=== PATIENT | female | born 1985 | race Caucasian/White ===

== ENCOUNTER 2019-03-06 05:25 | Inpatient (IN) | payer OTHER ==
[~2019-03-06] VITALS: Ht 165.1 cm; Wt 88.4 kg
[2019-03-06] MEDS ORDERED: LACTATED RINGER'S 1,000 ML IV PRN (07:03)
[2019-03-06] MEDS ORDERED: VALA500T PO (07:08)
--- NOTE | 2019-03-06 07:11 | TRIAGE ---
OB Triage Datetime Report Generated by CPN: 03/06/2019 07:10 Datetime: 03/06/2019 06:40 Stage of : OB Triage Datetime: 03/06/2019 06:21 Stage of : OB Triage Labor Evaluation Frequency: 2-5 Monitor Mode: External Duration (sec)2399: 30-60 Quality: Mild Pattern: Normal: <= 5 Contractions in 10 Minutes Resting Tone [place]: Relaxed Heart Rate FHR Baseline Rate: 130 Monitor Mode: External US FHR Baseline Changes: No Baseline Change Variability: Moderate 6-25 bpm Accelerations: 15X15 Decelerations: Variable Category: Category II Vaginal Exam Dilatation (cms): 3.0 Effacement (%): 90 Station: -2 Exam By: Seda Bustos Membrane Status: Ruptured Membranes Rupture Method: Spontaneous Amniotic Fluid Color: Clear Amniotic Fluid Amount: Copious Amniotic Fluid Odor: Normal Vaginal Bleeding: Scant Pool: Positive Cervix, Consistency: Soft Cervix, Position: Posterior Presentation 'A': Cephalic Datetime: 03/06/2019 06:20 Membrane Status: Ruptured Datetime: 03/06/2019 06:06 Time of Arrival: 03/06/2019 05:18 EGA: 39.2 Arrived By: Wheelchair Arrived From: Home Chief Complaint: w/ IVF c/o occas uc, srom @ 0430, and 3cm at MD yesterday Movement: Present Contractions: Occasional Rupture of Membranes: Ruptured Vaginal Bleeding: None Vaginal Discharge: Present Recent Sexual Intercouse: Denies Abdominal Trauma: Not Applicable Patient Complaints: Cramping Time Provider Notified: 03/06/2019 06:40 Provider Notified: Dr Ramos Initial Plan: EFM,SVE Datetime: 03/06/2019 05:48 Stage of : OB Triage Maternal Assessment Level of Consciousness: Fully Conscious DTR's/Clonus: DTRs 2+; No Clonus Headache: Denies Blurred Vision: No Nausea/Vomiting: Denies RUQ Epigastric Pain: Denies Facial Edema: None Monitor Mode: External Heart Rate FHR Baseline Rate: 130 Monitor Mode: External US Pain Assessment Pain Presence: Intermittent Pain Type: Contraction Pain Location: Abdomen
[2019-03-06] MEDS ORDERED: METHYLERGONOVINE 0.2 MG INJ IM PRN ×2 (07:30→22:30)
[2019-03-06] MEDS ORDERED: AMPICILLIN 2 GM/NS (PMX) 100 ML IV ONE (07:30)
[2019-03-06] MEDS ORDERED: LIDOCAINE 1% (MPF) 30 ML INJ INJ PRN (07:30)
[2019-03-06] MEDS ORDERED: BUTORPHANOL 2 MG INJ IV PRN ×2 (07:30)
[2019-03-06] MEDS ORDERED: OXYTOCIN 30 UNITS/LR 500 ML IV PRN ×2 (07:30→22:30)
[2019-03-06] MEDS ORDERED: IBUPROFEN 600 MG TAB PO PRN (07:30)
[2019-03-06] MEDS ORDERED: MISOPROSTOL 200 MCG TAB PR PRN ×2 (07:30→22:30)
[2019-03-06] MEDS ORDERED: CARBOPROST 250 MCG INJ IM PRN ×2 (07:30→22:30)
[2019-03-06] MEDS ORDERED: OXYTOCIN 30 UNITS/LR 500 ML IV SCH ×4 (07:30→22:30)
[2019-03-06 08:57] VITALS: Ht 165.1 cm; Wt 88.4 kg
[2019-03-06] MEDS: LACTATED RINGER'S 1,000 ML IV SCH ×2 (09:33→18:24)
[2019-03-06] MEDS: AMPICILLIN 1 GM/NS (PMX) 50 ML IV SCH ×2 (13:56→18:23)
[2019-03-06] MEDS ORDERED: FENTAnyl 2MCG/ML-ROPIV 0.2% 100 ML ONE (17:43)
--- NOTE | 2019-03-06 18:06 | PREAC ---
Date/Time of Note Date/Time of Note DATE: 03/06/19 TIME: 18:04 Anesthesia Eval and Record Evaluation Time Pre-Procedure Interview DATE: 03/06/19 TIME: 16:25 Age 33 Sex female NPO: 8 hrs Preoperative diagnosis iup @ 39 wks., , labor Planned procedure joya Past Medical History Past Medical History: Includes : : (1), Para: (0), Gestational age: (39 wks.) Surgery & Anesthesia Issues No known issue Meds Anticoagulation: No Beta Baltazar within 24 hr: No Reason Beta Baltazar not given: Pt. not on B-Baltazar Reported Medications valAcyclovir Hcl* (valACYclovir Hcl*) 500 Mg Tablet, 500 MG PO BID, TAB 03/06/19 Current Medications Lactated Ringer's 1,000 ml @ 125 mls/hr Q8H IV Last administered on 03/06/19at 09:33; Admin Dose 125 MLS/HR; Start 03/06/19 at 07:03 Ampicillin 50 ml @ 100 mls/hr Q4H IV Last administered on 03/06/19at 13:56; Admin Dose 100 MLS/HR; Start 03/06/19 at 11:30 Butorphanol Tartrate (Stadol) 1 mg Q2H PRN IV .PAIN SCALE 1-5; Start 03/06/19 at 07:30 Butorphanol Tartrate (Stadol) 2 mg Q2H PRN IV .PAIN SCALE 6-10; Start 03/06/19 at 07:30 Lidocaine (Xylocaine 1% (Mpf)) 30 ml ONCE PRN INJ .EPISIOTOMY; Start 03/06/19 at 07:30 Oxytocin/Lactated Ringer's 500 ml @ 500 mls/hr ONCE POST IV ; Start 03/06/19 at 07:30 Oxytocin/Lactated Ringer's 500 ml @ 125 mls/hr POST IV ; Start 03/06/19 at 07:30 Ibuprofen (Motrin) 600 mg ONCE PRN PO .PAIN 1-5; Start 03/06/19 at 07:30 Lactated Ringer's 1,000 ml @ 2,000 mls/hr Q30M PRN IV .ANESTHESIA; Start 03/06/19 at 07:03 Oxytocin/Lactated Ringer's 500 ml @ 0 mls/hr ONCE PRN IV .VAGINAL BLEEDING; Start 03/06/19 at 07:30 Methylergonovine Maleate (Methergine) 0.2 mg ONCE PRN IM .VAGINAL BLEEDING; Start 03/06/19 at 07:30 Carboprost Tromethamine (Hemabate) 250 mcg ONCE PRN IM .VAGINAL BLEEDING; Start 03/06/19 at 07:30 Misoprostol (Cytotec) 1,000 mcg ONCE PRN SC .VAGINAL BLEEDING; Start 03/06/19 at 07:30 Oxytocin/Lactated Ringer's 500 ml @ 0 mls/hr FOR AUGMENTATION IV ; Start 03/06/19 at 07:30 Meds reviewed: Yes Allergies Coded Allergies: No Known Allergy (Unverified , 03/06/19) Allergies Reviewed: Yes Labs/Studies Labs Reviewed: Reviewed by anesthesiologist Result Diagram: 03/06/19 0820 Laboratory Tests 03/06/19 08:20 Blood Bank Test 03/06/19 08:20 Antibody Screen NEGATIVE Blood Type O POSITIVE Rh Immune Globulin Candidate NO test: Positive Studies: ECG (n/a), CXR (n/a) Pre-procedure Exam Airway: Adequate mouth opening, Adequate thyromental dist Mallampati: Mallampati II Teeth: Normal Lung: Normal Heart: Normal ASA Physical Status ASA physical status: 2 Emergency: E Planned Anesthetic Neuraxial: Epidural Planned Pain Management Epidural, Local by surgeon Pre-operative Attestations Prior to commencing anesthesia and surgery, the patient was re-evaluated, there was verification of: *The patient's identity *The results of appropriate recent lab work and preoperative vital signs *The above evaluation not changing prior to induction *Anesthetic plan, risk benefits, alternative and complications discussed with patient/family; questions answered; patient/family understands, accepts and wishes to proceed. Matchbook Assembler used JOHN JESSICA MD Mar 06, 2019 18:06
[2019-03-06] MEDS ORDERED: NALOXONE (0.4 MG/ML) INJ IV PRN (18:30)
[2019-03-06] MEDS ORDERED: FENTAnyl 2MCG/ML-ROPIV 0.2% 100 ML BAG EPI SCH (18:30)
--- NOTE | 2019-03-06 19:25 | HP ---
Date/Time of Note Date/Time of Note DATE: 03/06/19 TIME: 19:19 OB - History Hx of Present Free Text/Dictation 33 y.o. A1 with an IVF at 39 weeks who presented this AM with ruptured membranes and in early labor. Her initial exam was 90%/3/-3. She was grossly ruptured with a large amount of amniotic fluid coming out during the initial exam. Estimated Due Date: Mar 13, 2019 : 2 Para: 0 Spontaneous : 1 Care: Good Care Ultrasounds: Normal mid trimester US Obstetrical Complications: None Medical Complications: None Other Concerns: PMHx: PCOS. H/o heart palpitations. PSHx: IVF cycle. NKDA. Past Family/Social History * Past Medical, Surgical, Family and Obstetric Histories reviewed from chart. Blood Type: O+ Rubella: immune RPR/VDRL: Negative GBS Status: Positive HBsAG: Negative OB Admission Exam Physical Exam HEENT: WNL Heart: Rhythm Normal Lungs: Clear Abdomen: WNL Extremities: Normal Reflexes: Normal Cervical Dilatation: 3cm Effacement: Other (90%) Station: -3 Membranes: Ruptured Amniotic Fluid: Clear Heart Rate: 140's Accelerations: Accelerations Present Decelerations: No Decelerations Varibility: Moderate Contractions on Admission: 6-10 Minutes Apart Intensity: Mild Last 72 hours Lab Results CBC & BMP 03/06/19 08:20 OB Assessment/Plan Reason for admission: rupture of membranes Other Assessment: IUP at 39 weeks. Beta strep positive. Plan: Expectant Management Other plan: Augmentation with pitocin as needed. ANTON MAZARIEGOS MD Mar 06, 2019 19:25
[2019-03-06] MEDS ORDERED: CEFAZOLIN 2 GM/50 ML (PMX) 50 ML IVPB SCH (22:30)
[2019-03-06] MEDS ORDERED: ONDANSETRON 4 MG INJ ONE (23:27)
[2019-03-06] MEDS ORDERED: METOCLOPRAMIDE 10 MG INJ ONE (23:27)
[2019-03-06] MEDS ORDERED: MIDAZOLAM 1 MG/ML 2 ML INJ ONE ×5 (23:37→23:51)
[2019-03-06] MEDS ORDERED: LACTATED RINGER'S 1,000 ML IV ONE (23:46)
--- NOTE | 2019-03-06 23:46 | PREAC ---
Date/Time of Note Date/Time of Note DATE: 03/06/19 TIME: 23:30 Anesthesia Eval and Record Evaluation Time Pre-Procedure Interview DATE: 03/06/19 TIME: 23:00 Age 33 Sex female NPO: 8 hrs Preoperative diagnosis iup @ 39 wks., , labor, failed induction, non reassuring status Planned procedure primary c/s Past Medical History Past Medical History: Includes : : (1), Para: (0), Gestational age: (39 wks.), Other (failed induction, non reassuring status) Surgery & Anesthesia Issues No known issue Meds Anticoagulation: No Beta Baltazar within 24 hr: No Reason Beta Baltazar not given: Pt. not on B-Baltazar Reported Medications valAcyclovir Hcl* (valACYclovir Hcl*) 500 Mg Tablet, 500 MG PO BID, TAB 03/06/19 Current Medications Lactated Ringer's 1,000 ml @ 125 mls/hr Q8H IV Last administered on 03/06/19at 18:24; Admin Dose 125 MLS/HR; Start 03/06/19 at 07:03 Ampicillin 50 ml @ 100 mls/hr Q4H IV Last administered on 03/06/19at 18:23; Admin Dose 100 MLS/HR; Start 03/06/19 at 11:30 Butorphanol Tartrate (Stadol) 1 mg Q2H PRN IV .PAIN SCALE 1-5; Start 03/06/19 at 07:30 Butorphanol Tartrate (Stadol) 2 mg Q2H PRN IV .PAIN SCALE 6-10; Start 03/06/19 at 07:30 Lidocaine (Xylocaine 1% (Mpf)) 30 ml ONCE PRN INJ .EPISIOTOMY; Start 03/06/19 at 07:30 Oxytocin/Lactated Ringer's 500 ml @ 500 mls/hr ONCE POST IV ; Start 03/06/19 at 07:30 Oxytocin/Lactated Ringer's 500 ml @ 125 mls/hr POST IV ; Start 03/06/19 at 07:30 Ibuprofen (Motrin) 600 mg ONCE PRN PO .PAIN 1-5; Start 03/06/19 at 07:30 Lactated Ringer's 1,000 ml @ 2,000 mls/hr Q30M PRN IV .ANESTHESIA Last administered on 03/06/19at 22:49; Admin Dose 2,000 MLS/HR; Start 03/06/19 at 07:03 Oxytocin/Lactated Ringer's 500 ml @ 0 mls/hr ONCE PRN IV .VAGINAL BLEEDING; Start 03/06/19 at 07:30 Methylergonovine Maleate (Methergine) 0.2 mg ONCE PRN IM .VAGINAL BLEEDING; Start 03/06/19 at 07:30 Carboprost Tromethamine (Hemabate) 250 mcg ONCE PRN IM .VAGINAL BLEEDING; Start 03/06/19 at 07:30 Misoprostol (Cytotec) 1,000 mcg ONCE PRN IN .VAGINAL BLEEDING; Start 03/06/19 at 07:30 Oxytocin/Lactated Ringer's 500 ml @ 0 mls/hr FOR AUGMENTATION IV Last administered on 03/06/19at 18:30; Admin Dose 8 MLS/HR; Start 03/06/19 at 07:30 Naloxone HCl (Narcan) 0.1 mg Q2M PRN IV .RESP RATE; Start 03/06/19 at 18:30; Stop 03/07/19 at 18:29 Fentanyl/ Ropivacaine 100 ml EPIDURAL INFUSION EPI ; Start 03/06/19 at 18:30 Cefazolin Sodium/ Dextrose 50 ml @ 100 mls/hr ONCE IVPB ; Start 03/06/19 at 22:30 Oxytocin/Lactated Ringer's 500 ml @ 125 mls/hr POST IV ; Start 03/06/19 at 22:30 Meds reviewed: Yes Allergies Coded Allergies: No Known Allergy (Unverified , 03/06/19) Allergies Reviewed: Yes Labs/Studies Labs Reviewed: Reviewed by anesthesiologist Result Diagram: 03/06/19 0820 Laboratory Tests 03/06/19 08:20 Blood Bank Test 03/06/19 08:20 Antibody Screen NEGATIVE Blood Type O POSITIVE Rh Immune Globulin Candidate NO test: Positive Studies: ECG (n/a), CXR (n/a) Pre-procedure Exam Airway: Adequate mouth opening, Adequate thyromental dist Mallampati: Mallampati II Teeth: Normal Lung: Normal Heart: Normal ASA Physical Status ASA physical status: 2 Emergency: E Planned Anesthetic General/MAC: MAC Neuraxial: Epidural (top up) Planned Pain Management Epidural (epidural narcotics), Local by surgeon Pre-operative Attestations Prior to commencing anesthesia and surgery, the patient was re-evaluated, there was verification of: *The patient's identity *The results of appropriate recent lab work and preoperative vital signs *The above evaluation not changing prior to induction *Anesthetic plan, risk benefits, alternative and complications discussed with patient/family; questions answered; patient/family understands, accepts and wishes to proceed. Mechanic Chief used JOHN JESSICA MD Mar 06, 2019 23:40
[2019-03-06] MEDS ORDERED: OXYTOCIN 10 UNIT INJ ONE (23:50)
[2019-03-06] MEDS ORDERED: FENTAnyl 50 MCG/ML VIAL ONE (23:51)
[2019-03-06] MEDS ORDERED: morphine SULFATE/PF (10 MG/10 ML) INJ ONE (23:52)
[2019-03-07] MEDS ORDERED: ZOLPIDEM 5 MG TAB PO PRN
[2019-03-07] MEDS ORDERED: LORAZEPAM 2 MG INJ IV PRN
[2019-03-07] MEDS ORDERED: KETOROLAC 30 MG INJ IV PRN
[2019-03-07] MEDS ORDERED: ONDANSETRON 4 MG INJ IV PRN
[2019-03-07] MEDS ORDERED: MEPERIDINE 25 MG INJ IV PRN
[2019-03-07] MEDS ORDERED: MIDAZOLAM 1 MG/ML 2 ML INJ IV PRN
[2019-03-07] MEDS ORDERED: DIPHENHYDRAMINE 50 MG INJ IV PRN ×2
[2019-03-07] MEDS ORDERED: NALBUPHINE HCL (10 MG/1 ML) INJ IV PRN
[2019-03-07] MEDS ORDERED: HYDROmorphONE 0.5 MG/0.5 ML SYG IV PRN ×2
[2019-03-07] MEDS ORDERED: EPHEDrine 25 MG/5 ML SYG IV PRN
[2019-03-07] MEDS ORDERED: NALOXONE (0.4 MG/ML) INJ IV PRN
[2019-03-07] MEDS ORDERED: OXYTOCIN 30 UNITS/LR 500 ML IV SCH (00:31)
[2019-03-07] MEDS ORDERED: KETOROLAC 30 MG INJ ONE (00:32)
[2019-03-07] MEDS ORDERED: AZITHROMYCIN 500MG/250 ML IVPB ONE (00:32)
--- NOTE | 2019-03-07 00:47 | OPR ---
Operative Report Planned Procedure Procedure date Mar 07, 2019 Procedure(s) Primary . Performed by see signature line Blow Molding Machine Tender: TODD RYAN MD Anesthesiologist: JOHN JESSICA MD Pre-procedure diagnosis IUP at 39 weeks. Failure to progress. Cephalopelvic disproportion. [id number] Anesthesia Type: [id number] epidural Post-Procedure Post-procedure diagnosis Same Findings Viable baby boy weighing 3975 grams or 8# 12 oz, 20.75" long, and with Apgars of 8/9. Estimated Blood Loss: 400 - 500 mls Specimen(s) none Grafts/Implant(s) none Complication(s) none Pt Condition post procedure: stable Disposition: PACU Procedure Description Under satisfactory spinal anesthesia, the patient was prepped and draped and placed in a supine position, tilted to the left. Pfannenstiel incision was made, carried through the subcutaneous tissue. Bleeders brought under control with electrocautery. Fascia incised to the length of the incision. Rectus muscles from the fascia, divided midline. Peritoneum exposed, entered through a transverse incision. The bladder flap was developed and the bladder pushed down. Transverse incision was made in the lower segment of the uterus. Clear amniotic fluid noted. It was noted the the presenting part to the vaginal canal was not the occiput rather the front part of the head in the hairline. The vertix was tipped down and a vacuum applied to deliver the head. The rest of the baby was then easily delivered. The mouth and nares were bulb suctioned. The cord was doubly clamped and cut. The baby was brought to the warmer and the team for immediate attention. The placenta was delivered manually intact. The uterus was delivered outside the abdomen. The uterus was wrapped in a wet lap and the uterine cavity was cleaned with a dry lap. Uterus closed in 2 layers using #1 chromic in continuous fashion. Peritoneal cavity irrigated with warm saline. Sponge, needle and instrument count reported to be correct. Abdominal peritoneum closed with 2-0 Chromic continuously. Rectus muscle approximated with the same suture. Fascia closed with 0-Vicryl. The subcutaneous tissue was irrigated and closed with 2-0 Chromic and skin was closed with 3-0 Monocryl in a subcuticular stitch. Steristrips with Mastosol were placed. Estimated blood loss 500 mL. Urine was clear and slightly pink. Pt was transported to the recovery room in good condition. ANTON MAZARIEGOS MD Mar 07, 2019 00:47
[2019-03-07] MEDS ORDERED: NACL 0.9% 3 ML SYG IV SCH (01:00)
[2019-03-07] MEDS ORDERED: OXYTOCIN 30 UNITS/LR 500 ML IV PRN (01:00)
[2019-03-07] MEDS ORDERED: METHYLERGONOVINE 0.2 MG INJ IM PRN (01:00)
[2019-03-07] MEDS ORDERED: LANOLIN HPA 1 PKT TOP PRN (01:00)
[2019-03-07] MEDS ORDERED: MISOPROSTOL 200 MCG TAB PR PRN (01:00)
[2019-03-07] MEDS ORDERED: CARBOPROST 250 MCG INJ IM PRN (01:00)
[2019-03-07 03:50] VITALS: BP 129/80; PULSE 78; RESP 18
--- NOTE | 2019-03-07 06:41 | PAC ---
Date/Time of Note Date/Time of Note DATE: 03/07/19 TIME: 06:40 Post-Anesthesia Notes Post-Anesthesia Note Last documented vital signs Vital Signs Date Temp Pulse Resp B/P (MAP) Pulse Ox O2 O2 Flow FiO2 Time Delivery Rate 03/07/19 98.5 78 18 129/80 98 Room Air 03:50 (96) Activity: WNL Respiratory function: WNL Cardiovascular function: WNL Mental status: Baseline Pain reasonably controlled: Yes Hydration appropriate: Yes Nausea/Vomiting absent: Yes JOHN JESSICA MD Mar 07, 2019 06:41
--- NOTE | 2019-03-07 06:42 | OPPN ---
Date/Time of Note Date/Time of Note DATE: 03/08/19 TIME: 00:30 Anesthesia Follow up Anesthesia Follow up Last documented vital signs Vital Signs Date Temp Pulse Resp B/P (MAP) Pulse Ox O2 O2 Flow FiO2 Time Delivery Rate 03/07/19 98.5 78 18 129/80 98 Room Air 03:50 (96) Respiratory function: WNL Cardiovascular function: WNL Comments S: pt. is pod #1. min. bt. pain. min. need for bt. pain meds. ie nsaids/opiates. ambulating. min. n/v. O: vss, afeb. A: min. bt. pain sec. to IT MSO4. P: no complications. JOHN JESSICA MD Mar 07, 2019 06:42
[2019-03-07 08:00] VITALS: BP 105/63; PULSE 87; RESP 18
[2019-03-07] MEDS: valACYclovir 500 MG TAB PO SCH ×2 (09:29→21:00)
[2019-03-07 12:30] VITALS: BP 113/71; PULSE 96; RESP 18
[2019-03-07] MEDS: LACTATED RINGER'S 1,000 ML IV SCH ×2 (13:02→20:00)
[2019-03-07 16:00] VITALS: BP 116/78; PULSE 95; RESP 18
[2019-03-07 19:40] VITALS: BP 118/74; PULSE 99; RESP 18
[2019-03-07] MEDS: IBUPROFEN 800 MG TAB PO SCH (22:00)
[2019-03-07] MEDS ORDERED: OXYCODONE/ACETAMINOPHEN (5/325) TAB PO PRN (23:41)
[2019-03-08 03:55] VITALS: BP 127/79; PULSE 99; RESP 18
[2019-03-08] MEDS: LACTATED RINGER'S 1,000 ML IV SCH ×3 (04:00→20:00)
[2019-03-08] MEDS: OXYCODONE/ACETAMINOPHEN (5/325) TAB PO PRN ×5 (04:54→21:35)
[2019-03-08] MEDS: IBUPROFEN 800 MG TAB PO SCH ×3 (05:36→21:34)
[2019-03-08 08:00] VITALS: BP 115/66; PULSE 99; RESP 18
[2019-03-08] MEDS: valACYclovir 500 MG TAB PO SCH ×2 (09:13→21:34)
[2019-03-08 15:50] VITALS: BP 118/69; PULSE 86; RESP 18
[2019-03-08 20:00] VITALS: BP 121/64; PULSE 78; RESP 20
--- NOTE | 2019-03-08 21:49 | QN ---
Documentation Comment Post op Day #2 Pt is doing well postoperatively but is very tired. Is but is having to supplement as the baby was getting very hungry and the baby is beginning to get jaundiced.+flatus. T=98.1 BP 115/66 Fundus firm. Abdomen non-distended. Incision covered with the dressing which is dry. Lochia minimal. Ext 2+ edema. WBC 14.5 Hgb 9.1 Plts 184K P: Continue care. ANTON MAZARIEGOS MD Mar 08, 2019 21:49
[2019-03-09] MEDS: OXYCODONE/ACETAMINOPHEN (5/325) TAB PO PRN ×3 (01:39→10:20)
[2019-03-09] MEDS: LACTATED RINGER'S 1,000 ML IV SCH (04:00)
[2019-03-09] MEDS: IBUPROFEN 800 MG TAB PO SCH ×2 (05:48→14:05)
[2019-03-09 06:16] VITALS: BP 122/62; PULSE 72; RESP 20
[2019-03-09 08:00] VITALS: BP 110/66; PULSE 88; RESP 18
[2019-03-09] MEDS: valACYclovir 500 MG TAB PO SCH (09:12)
[2019-03-09] MEDS ORDERED: DIPHTH/TET/ACEL PERTUSS (ADULT) 0.5 ML VIAL IM* ONE (12:45)
--- NOTE | 2019-03-09 16:58 | PD.PPDC ---
ATTENDANCE CLERK Discharge Instruction Condition [id number] Patient Condition: Prubr7j Good Diet Fesvv8Bh Diet: Fojwo5t Resume Regular Diet Activity/Restrictions [id number] Activity: Lmtqm5t Bedrest May be up to bathroom May be up for meals May Shower [id number] Restrictions: Wedgf2n No Exercising No Lifting No Driving Minimize Walking Minimize Stair-climbing No Sexual Activity Nothing in the Vagina No [place] No Tampons, douche Wound/Drain Care Instructions [id number] Wound/Drain Care Fqebw1z Remove Steri Strips in 2 Instructions: weeks Keep clean and dry Follow-up Follow-up with Physician: 2, Week/Weeks Return to clinic for Vrehu4Ls STRETCHING MACHINE TENDER FRAME Instructions: Hgprv5r Fever greater than 101 Chills Worsening abdominal pain Excessive Vaginal Bleeding Yxcky4Al OB Instructions: Pfmra9v Breast Tenderness Depression Ugbrg4Wy Surgical Instructions: Mkmyt1s Incisional Drainage Incisional Redness ANTON MAZARIEGOS MD Mar 09, 2019 16:58
[2019-03-09] MEDS ORDERED: IBUP800T48 PO (16:59)
[2019-03-09] MEDS ORDERED: OXYC-438 PO (16:59)
--- NOTE | 2019-03-09 17:02 | DS ---
Date/Time of Note Date/Time of Note DATE: 03/09/19 TIME: 17:00 Obstetrical Discharge Record Final Diagnosis Final Diagnosis: Term delivered Section Section: Primary Primary Indication Cephalopelvic disproportion Complications Augmentation: Yes Induction: No Condition on Discharge Physical Assessment Last Vitals: 97.9 BP 110/66 Voiding: Yes Bowel Movement: Yes Breast: Soft, non-tender Fundus: Firm Abdomen and Incision: Incision is clean, dry, and intact. Calf Tenderness: No Patient Condition: Good ANTON MAZARIEGOS MD Mar 09, 2019 17:02
--- NOTE | 2019-03-10 17:32 | DELSUM ---
Delivery Summary A-C Datetime Report Generated by CPN: 03/10/2019 17:32 DELIVERY PERSONNEL Director Regulatory Agency: [place], [place] MATERNAL INFORMATION Delivery Anesthesia: Epidural Medications in Delivery: See anesthesia record Delivery QBL (ml): 500 Placenta Cultured: No Maternal Complications: Other Other Maternal Complications: IVF LABOR SUMMARY EDC: 03/11/2019 00:00 No. Babies in Womb: 1 Attempted: No Labor Anesthesia: Epidural LABOR INFORMATION Reason for Induction: Not Applicable Onset of Labor: 03/05/2019 17:00 Oxytocin: Augmentation Group B Beta Strep: Positive Antibiotics # of Doses: 3 Antibiotics Time of Last Dose: 03/06/2019 18:23 Steroids Given: None Reason Steroids Not Administered: Not Applicable MEMBRANES Membranes Rupture Method: Spontaneous Rupture of Membranes: 03/06/2019 04:30 Length of Rupture (hr): 19.18 Amniotic Fluid Color: Clear Amniotic Fluid Amount: Moderate Amniotic Fluid Odor: Normal STAGES OF LABOR Stage 3 hr: 0 Stage 3 min: 1 Total Time in Labor hr: 30 Total Time in Labor min: 42 CSECTION DELIVERY Primary Indication: Other Other Primary Indication: CPD Secondary Indication: Failure of Descent CSection Urgency: Elective CSection Incidence: Primary Labor: Labor Elective: Elective CSection Incision: Lower Uterine Transverse BABY A INFORMATION Delivery Date/Time: 03/06/2019 23:41 Method of Delivery: Born in Route : No : N/A Forceps: N/A Vacuum Extraction: Successful Shoulder Dystocia : N/A ASSISTED DELIVERY BABY A Indication for Assisted Delivery: station Catheter Prior to Procedure: Yes Vacuum Number of Pulls: 1 Vacuum Number of PopOffs: 0 Vacuum 911 Emergency Services Dispatcher: [place] Vacuum/Forceps Comment: applied _ controlled vacuum during C/S SHOULDER DYSTOCIA BABY A Delivery Date/Time: 03/06/2019 23:41 PRESENTATION/POSITION BABY A Presentation: Cephalic Cephalic Presentation: Vertex Breech Presentation: N/A PLACENTA INFORMATION BABY A Placenta Delivery Time : 03/06/2019 23:42 Placenta Method of Delivery: Manual Removal Placenta Status: Delivered SCORES BABY A Heart Rate 1 min: >100 bpm Resp Effort 1 min: Good Cry Reflex Irritability 1 min: Cough/Sneeze/Pulls Away Muscle Tone 1 min: Active Motion Color 1 min: Blue/Pale Resuscitation Effort 1 min: Tactile Stimulation SCORE 1 MIN: 8 Heart Rate 5 min: >100 bpm Resp Effort 5 min: Good Cry Reflex Irritability 5 min: Cough/Sneeze/Pulls Away Muscle Tone 5 min: Active Motion Color 5 min: Body [place], Extremit Blue Resuscitation Effort 5 min: N/A SCORE 5 MIN: 9 INFANT INFORMATION BABY A Gestational Age at Delivery: 39.2 Gestational Status: Full Term- 39- 40.6 Weeks Outcome : Liveborn Infant Condition : Stable Sex: Male IDENTIFICATION/MEDS BABY A ID Band Number: [id number] ID Band Location: Right Leg; Left Arm Sensor Applied: Yes Sensor Number: [id number] Sensor Location : Cord Clamp Vitamin K Given : Not Given Erythromycin Given: Not Given WEIGHT/LENGTH BABY A Birthweight (gm): 3975 Infant Weight (lb): 8 Weight (oz): 12 Length (in): 20.75 Length (cm): 52.71 CORD INFORMATION BABY A No. Cord Vessels: 3 Nuchal Cord : N/A Cord Blood Taken: Yes Banking/Donate Info: NO Suction: Mouth; Nose ASSESSMENT BABY A Infant Complications: Multiple Variable Decels Physical Findings at Delivery: Molding of the Head; Skin Tags Physical Findings- Other: Skin tag on left cheek _ left ear Respirations: Appears Normal Labeling Machine Operator/ALS Called : No Care By: NICU team Transferred To: Remains with Mother
== END 2019-03-09 17:25 | disposition home or self-care (01) | DRG 788 ==
LOC: OBT 05:25 → L-D 05:26 → OBT 06:40 → L-D 06:40 → PP1 03-07 03:48
PROVIDERS: ADMIT Obstetrics & Gynecology; ATTEND Obstetrics & Gynecology
PROC: 10D00Z1 Extraction of Products of Conception, Low, Open Approach (ICD-10-PCS; principal; 2019-03-07)
DX: O62.0 Primary inadequate contractions (principal); O33.9 Maternal care for disproportion, unspecified; O76 Abnormality in fetal heart rate and rhythm complicating labor and delivery; O61.9 Failed induction of labor, unspecified; O99.824 Streptococcus B carrier state complicating childbirth; Z3A.39 39 weeks gestation of pregnancy; Z37.0 Single live birth; Z23 Encounter for immunization
CPT/HCPCS: 62322; 85025; 85610; 85730; 86592; 86850; 86900; 86901; 87340; 90715; 99464; G0463; J0290; J0456; J0690; J1885; J2250; J2274; J2405; J2590; J2765; J3010; J7120